=== PATIENT | female | born 1975 | race Caucasian/White ===

== ENCOUNTER 2019-08-02 20:19 | Emergency (ER) | payer BC ==
[~2019-08-02] VITALS: Ht 162.6 cm; Wt 56.8 kg
[2019-08-02 20:21] VITALS: Ht 162.6 cm; Wt 56.8 kg
[2019-08-02] MEDS ORDERED: XANAX0.5 MG PO (20:23)
[2019-08-02] MEDS ORDERED: FEXOFENADINE H180 MG PO (20:23)
[2019-08-02] MEDS ORDERED: ZITHROMAX250 MG PO (20:23)
[2019-08-02] MEDS ORDERED: ALBUTEROL SULF8.5 GM INH (21:22)
[2019-08-02] MEDS ORDERED: MEDROL DOSE PACK4 MG PO (21:22)
[2019-08-02] MEDS ORDERED: PROMETHAZINE W473 ML PO (21:22)
[2019-08-02 21:30] VITALS: BP 122/84
== END 2019-08-02 21:30 | disposition home or self-care (01) ==
LOC: D.ER 20:19
DX: J40 Bronchitis, not specified as acute or chronic (principal); J06.9 Acute upper respiratory infection, unspecified; F17.200 Nicotine dependence, unspecified, uncomplicated

== ENCOUNTER 2019-08-05 17:43 | Emergency (ER) | payer BC ==
[~2019-08-05] VITALS: Ht 162.6 cm; Wt 56.8 kg
[~2019-08-05 17:43] MED LIST: ALBUTEROL SULF8.5 GM INH; FEXOFENADINE H180 MG PO; MEDROL DOSE PACK4 MG PO; PROMETHAZINE W473 ML PO; XANAX0.5 MG PO; ZITHROMAX250 MG PO
[2019-08-05 17:48] VITALS: Ht 162.6 cm; Wt 56.8 kg
[2019-08-05 18:27] LABS: UDS - AMPHET NEGATIVE QUAL (NEGATIVE); UDS - BARB NEGATIVE QUAL (NEGATIVE); UDS - BENZO NEGATIVE QUAL (NEGATIVE); UDS - COCAINE NEGATIVE QUAL (NEGATIVE); UDS - OPIATE NEGATIVE QUAL (NEGATIVE); UDS - PCP NEGATIVE QUAL (NEGATIVE); UDS - THC NEGATIVE QUAL (NEGATIVE)
[2019-08-05 18:44] LABS: APPEARANCE CLEAR (CLEAR); BILIRUBIN NEGATIVE (NEGATIVE); COLOR STRAW (YELLOW); GLUCOSE NEGATIVE (NEGATIVE); KETONE NEGATIVE (NEGATIVE); NITRITE NEGATIVE (NEGATIVE); PROTEIN NEGATIVE (NEGATIVE); SPECIFIC GRAVITY 1.005 (1.005-1.020); UROBILINOGEN NORMAL (NORMAL)
[2019-08-05 18:55] LABS: BACTERIA FEW /hpf (NEGATIVE); EPITHELIAL CELLS 0-5 /hpf (0-5); RED CELLS - URINE 0-5 /hpf (0-5); WHITE CELLS - URINE NSEEN /hpf (NEGATIVE); YEAST <1+ /hpf (NONE SEEN)
[2019-08-05 19:36] LABS: BASOPHILS 0.2 % (0-2); EOSINOPHILS 0.2 % (0-7); HEMOGLOBIN 14.7 g/dL (12-16); IMMATURE GRANULOCYTES 0.4 % (0-5); LYMPHOCYTES 25.3 % (15-50); MCHC 34.2 g/dL (31.0-37.0); MCV 93.7 fL (80.0-100.0); MEAN PLATELET VOLUME 9.5 fL (7.4-10.4); MONOCYTES 5.6 % (2-11); NEUTROPHILS 68.3 % (40-80); PLATELET COUNT 221 10x3/uL (130-400); RBC 4.59 10x6/uL (4.00-5.40); RDW 13.2 % (11.5-14.5); WBC 11.3 10x3/uL (4.8-10.8)
[2019-08-05 19:49] LABS: ALBUMIN 3.9 g/dL (3.4-5.0); ALKALINE PHOSPHATASE 64 U/L (46-116); ALT (SGPT) 16 U/L (10-68); BILIRUBIN - TOTAL 0.35 mg/dL (0.2-1.3); CALC OSMOLALITY 286 mosm/kg (275-300); CALCIUM 9.1 mg/dL (8.5-10.1); CARBON DIOXIDE 31.2 mmol/L (21.0-32.0); CHLORIDE - SERUM 104 mmol/L (98-107); CREATININE - SERUM 0.8 mg/dL (0.6-1.3); GLUCOSE 96 mg/dL (74-106); POTASSIUM - SERUM 4.2 mmol/L (3.5-5.1); PROTEIN - SERUM 7.4 g/dL (6.4-8.2); SODIUM 142 mmol/L (136-145); UREA NITROGEN 24 mg/dL (7-18); eGFR NON AFRICAN AMERICAN 82 mL/min (90-120)
[2019-08-05 19:57] LABS: PRO BNP 17 pg/mL (0-125)
[2019-08-05 19:59] LABS: TROPONIN-I < 0.017 ng/mL (0.000-0.060)
[2019-08-05] MEDS ORDERED: ALBUTEROL1.25 MG/3 INH (21:10)
[2019-08-05 21:44] VITALS: BP 111/62
== END 2019-08-05 21:44 | disposition home or self-care (01) ==
LOC: D.ER 17:43
PROVIDERS: Emergency Medicine; Family Medicine
DX: J40 Bronchitis, not specified as acute or chronic (principal); R06.2 Wheezing